=== PATIENT | female | born 1995 | race Caucasian/White ===

== ENCOUNTER 2022-04-07 11:34 | Emergency (ER) | payer OTHER ==
[2022-04-07] MEDS ORDERED: predniSONE 10 MG Tab ONE (12:00)
== END 2022-04-07 13:10 | disposition home or self-care (01) ==
LOC: LB.ED 11:34
DX: J02.9 Acute pharyngitis, unspecified (principal)
CPT/HCPCS: 36415; 85025; 87430; 99281; 99283; J7512